=== PATIENT | male | born 1950 | race Caucasian/White ===

== ENCOUNTER 2020-02-24 05:02 | Inpatient (IN) | payer MEDICARE ==
[2020-02-24] VITALS (8 sets, daily range): BP systolic 123–153; BP diastolic 68–82
[~2020-02-24] VITALS: Ht 180.3 cm; Wt 101.3 kg
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
--- NOTE | 2020-02-24 05:50 | NUR ---
Pt states breathing is much better after treatment at this time and no audible wheezing noted.
[2020-02-24 05:55] LABS: BUN 12 mg/dl (7-24); CHLORIDE 106 mmol/L (98-107); CREATININE 0.67 mg/dL (0.70-1.30); POTASSIUM 3.8 mmol/L (3.5-5.1); SODIUM 139 mmol/L (136-145)
--- NOTE | 2020-02-24 06:00 | NUR ---
Spoke with on the phone at this time.
[2020-02-24 06:09] LABS: BASO # 0.1 10*3/uL (0.0-0.1); BASO % 0.7 % (0.0-1.0); EOS # 0.6 10*3/uL (0.0-0.4); EOS % 9.1 % (1.0-4.0); HEMATOCRIT 48.1 % (42.0-52.0); LYMPH # 1.2 10*3/uL (1.3-4.4); LYMPH % 17.2 % (27.0-41.0); MEAN CELL VOLUME 99.8 fl (80.0-94.0); MEAN CORPUSCULAR HGB 32.8 pg (27.0-31.0); MEAN CORPUSCULAR HGB CONC 32.8 g/dl (33.0-37.0); MEAN PLATELET VOLUME 10.3 fl (9.6-12.3); MONO # 0.5 10*3/uL (0.1-1.0); MONO % 6.9 % (3.0-9.0); NEUT # 4.4 10*3/uL (2.3-7.9); NEUT % 64.6 % (47.0-73.0); PLATELET COUNT AUTOMATED 172 10*3/uL (130-400); RED BLOOD COUNT 4.82 10*6/uL (4.50-5.90); RED CELL DISTRI WIDTH 12.8 % (0-14.5); WHITE BLOOD COUNT 6.9 10*3/uL (4.8-10.8)
--- NOTE | 2020-02-24 06:16 | NUR ---
Pt currently sleeping at this time.
--- NOTE | 2020-02-24 06:45 | NUR ---
in to see pt and aware of pt is going to be admitted at this time.
--- NOTE | 2020-02-24 06:55 | NUR ---
Pt voided small amount of yellow urine at this time.
--- NOTE | 2020-02-24 07:03 | NUR ---
Transfer of care to Kushal carrera.
--- NOTE | 2020-02-24 07:05 | NUR ---
NURSE REPORT RECEIVED FOR CONTINUATION OF CARE.
--- NOTE | 2020-02-24 07:35 | NUR ---
A 69, admitted to , under the services of JUAN ANTONIO Tamez DO with a diagnosis of COPD EXACERBATION. Chief complaint is SOB WITH WHEEZE WORSENING. Patient arrived via ambulatory from [place]. Monitor applied. Initial assessment completed. Vital signs taken and recorded. JUAN ANTONIO TAMEZ DO notified of admission to the unit. Orders received. See assessment for past medical history, medications and allergies. Patient and/or family oriented to unit. [facility] visitation policy reviewed. Clothing/patient valuable form completed. ZENON MONROE
[2020-02-24 10:04] LABS: ABG BASE EXCESS 2.6 mmol/L (-2.0-2.0); ARTERIAL BLOOD GAS PH 7.38 (7.35-7.45)
--- NOTE | 2020-02-24 10:41 | NUR ---
ATEMPTED TO CALL FOR HOME MED LIST. NO ANSWER. LEFT MESSAGE REQUESTING CALL BACK.
[2020-02-24] MEDS ORDERED: ATORVASTATIN CA10 M1 PO (10:45)
[2020-02-24] MEDS ORDERED: MELOXICAM15 MG PO (10:45)
[2020-02-24] MEDS ORDERED: NATURE'S BLEND F1 MG PO (10:46)
[2020-02-24] MEDS ORDERED: METHOTREXATE S2.5 M1 PO (10:46)
[2020-02-24] MEDS ORDERED: VENLAFAXINE HY150 M2 PO (10:47)
[2020-02-24] MEDS ORDERED: SILVADENE,SSD C50 GM T (10:47)
--- NOTE | 2020-02-24 10:48 | NUR ---
[facility] UPDATED VIA CLAM HISTORY. NOTIFIED.
[2020-02-24] MEDS ORDERED: VITAMIN D350 MC2 PO (11:35)
[2020-02-24] MEDS ORDERED: BROVANA15 MCG/2 M INH (11:36)
--- NOTE | 2020-02-24 17:03 | NUR ---
CALLED AGAIN ABOUT HOME MEDS NOT BEING RESTARTED. SAID HE WOULD LOOK AT THEM/REORDER THEM NOW.
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
[2020-02-25] VITALS: BP 138/88
--- NOTE | 2020-02-25 01:23 | NUR ---
24 HR chart check completed.
[2020-02-25 06:14] LABS: BASO % 0.1 % (0.0-1.0); EOS % 0.1 % (1.0-4.0); HEMATOCRIT 46.4 % (42.0-52.0); LYMPH # 0.9 10*3/uL (1.3-4.4); LYMPH % 5.4 % (27.0-41.0); MEAN CELL VOLUME 98.7 fl (80.0-94.0); MEAN CORPUSCULAR HGB 33.2 pg (27.0-31.0); MEAN CORPUSCULAR HGB CONC 33.6 g/dl (33.0-37.0); MEAN PLATELET VOLUME 10.2 fl (9.6-12.3); MONO # 0.7 10*3/uL (0.1-1.0); NEUT # 15.6 10*3/uL (2.3-7.9); NEUT % 89.9 % (47.0-73.0); PLATELET COUNT AUTOMATED 199 10*3/uL (130-400); RED CELL DISTRI WIDTH 13.2 % (0-14.5); WHITE BLOOD COUNT 17.3 10*3/uL (4.8-10.8)
[2020-02-25 06:59] LABS: ALBUMIN 3.1 gm/dl (3.1-4.5); ALKALINE PHOSPHATASE 111 U/L (45-117); BUN 14 mg/dl (7-24); CHLORIDE 106 mmol/L (98-107); CHOLESTEROL 144 mg/dL (<200); CREATININE 0.68 mg/dL (0.70-1.30); HDL CHOLESTEROL 55 mg/dl (40-60); LDL CHOLESTEROL 77 mg/dL (9-159); POTASSIUM 4.7 mmol/L (3.5-5.1); SGOT/AST 15 IU/L (3-35); SGPT/ALT 30 U/L (12-78); SODIUM 139 mmol/L (136-145); TOTAL PROTEIN 6.4 gm/dL (6.4-8.2); TRIGLYCERIDES 59 mg/dl (<150); VLDL CHOLESTEROL 12 mg/dL (6-40)
[2020-02-25 07:37] LABS: VITAMIN D, 25-HYDROXY 31.7 ng/mL (30-100)
[2020-02-25 08:00] VITALS: BP 138/65
[2020-02-25 09:02] LABS: ABG BASE EXCESS 3.2 mmol/L (-2.0-2.0); ARTERIAL BLOOD GAS PH 7.414 (7.35-7.45)
[2020-02-25 12:00] VITALS: BP 132/77
--- NOTE | 2020-02-25 12:41 | NUR ---
Test Carrier in to talk to patient. Patient states lives at HOME with . There are 12 steps in the home. Physician: RODERICK Pharmacy: [facility] Home health services: NONE Patient's level of ADLs: INDEPENDENT Patient has working utilities: YES DME: OXYGEN, NEBULIZER AND C PAP. PT DOES NOT REMEMBER SUPPLIERS NAME Follow-up physician's appointment after d/c: WILL BE MADE BY HOSPITALIST NURSE DIRECTOR ON DISCHARGE Does patient want to access PORTAL?: NO Discharge plan PT LIVES AT HOME WITH HIS AND IS INDEPEDENT IN HIS CARE. STATES HE HAS HOME OXYGEN, A NEBULIZER AND A CPAP. DENIES ANY OTHER NEEDS AT THIS TIME. PLANS TO RETURN HOME WITH WHEN MEDICALLY STABLE. WILL CONTINUE TO FOLLOW. STATES HE WILL HAVE A RIDE HOME.. NICOLASA JESUS
[2020-02-25 16:00] VITALS: BP 127/63
[2020-02-25 20:00] VITALS: BP 140/53
--- NOTE | 2020-02-25 22:00 | NUR ---
DRESSINGS TO ARM CHANGED AT THIS TIME. PATIENT TOLERATED WELL.
--- NOTE | 2020-02-25 23:27 | NUR ---
24 HR chart check completed.
[2020-02-26] VITALS: BP 144/78
--- NOTE | 2020-02-26 01:02 | NUR ---
PATIENT SLEEPING, ON HOME CPAP, NO DISTRESS NOTED. CALL LIGHT WITHIN REACH, WILL MONITOR
[2020-02-26 08:00] VITALS: BP 129/81
--- NOTE | 2020-02-26 11:53 | NUR ---
PT WILL DISCHARGE TO HOME WHEN MEDICALLY STABLE. DENIES ANY NEEDS ON DISCHARGE. WILL CONTINUE TO FOLLOW.
[2020-02-26 12:00] VITALS: BP 130/70
[2020-02-26 16:00] VITALS: BP 126/77
[2020-02-26 20:12] VITALS: BP 148/69
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
[2020-02-27] VITALS: BP 140/81
--- NOTE | 2020-02-27 00:08 | NUR ---
24 HR chart check completed.
[2020-02-27 06:29] LABS: BASO % 0.1 % (0.0-1.0); LYMPH # 0.9 10*3/uL (1.3-4.4); LYMPH % 6.7 % (27.0-41.0); MEAN CELL VOLUME 99.2 fl (80.0-94.0); MEAN CORPUSCULAR HGB 33.3 pg (27.0-31.0); MEAN CORPUSCULAR HGB CONC 33.6 g/dl (33.0-37.0); MEAN PLATELET VOLUME 10.2 fl (9.6-12.3); MONO # 0.7 10*3/uL (0.1-1.0); MONO % 4.7 % (3.0-9.0); NEUT # 12.3 10*3/uL (2.3-7.9); NEUT % 87.9 % (47.0-73.0); PLATELET COUNT AUTOMATED 188 10*3/uL (130-400); RED BLOOD COUNT 4.74 10*6/uL (4.50-5.90); RED CELL DISTRI WIDTH 13.3 % (0-14.5)
[2020-02-27 07:35] LABS: ALKALINE PHOSPHATASE 101 U/L (45-117); BUN 17 mg/dl (7-24); CHLORIDE 104 mmol/L (98-107); CREATININE 0.72 mg/dL (0.70-1.30); POTASSIUM 4.5 mmol/L (3.5-5.1); SGOT/AST 21 IU/L (3-35); SGPT/ALT 39 U/L (12-78); SODIUM 135 mmol/L (136-145); TOTAL PROTEIN 6.5 gm/dL (6.4-8.2)
[2020-02-27 08:00] VITALS: BP 134/75
--- NOTE | 2020-02-27 08:00 | NUR ---
Neurological: awake,alert,oriented Respiratory: cough Breath sounds: diminished Cough: hacking Cardiovascular: no problem Gastrointestinal: soft Genito/Urinary: no problem Musculoskeketal: AMBULATORY ANGIE CRUZ
--- NOTE | 2020-02-27 11:11 | NUR ---
PT BEING ACCESSED FOR HOME O2 PRIOR TO DC. PT HAS O2 AT HOME BUT FOR HS WITH CPAP. WILL CONTINUE TO FOLLOW.
--- NOTE | 2020-02-27 11:14 | NUR ---
PT CONTINUES TO DENY NEEDS AT HOME. WILL CONTINUE TO FOLLOW.
[2020-02-27 12:00] VITALS: BP 129/80
--- NOTE | 2020-02-27 12:05 | NUR ---
HOME O2 ASSESSMENT: PRE BP: 133/80, HR 104, RR 18, PULSE OX 90% ON ROOM AIR AT REST. AMBULATED PATIENT APPROX 10', PULSE OX DECREASED TO 86% ON ROOM AIR WHILE AMBULATING. PLACED 2 L/ ON PATIENT, SAT >87% WHILE AMBULATING-INCREASED TO 3 L/M-SAT >89% WHILE AMBULATING- INCREASED TO 4 L/M-SAT >92% WHILE AMBULATING. POST BP: 131/75, HR 78, RR 20 RN NOTIFIED. WILL NOTIFY CASE MANAGEMENT.
[2020-02-27 16:00] VITALS: BP 157/85
[2020-02-27 20:00] VITALS: BP 152/72
--- NOTE | 2020-02-27 22:00 | NUR ---
DRESSING CHANGED TO RIGHT ARM PER ORDER. PT. TOLERATED WELL.
[2020-02-28] VITALS: BP 126/76
--- NOTE | 2020-02-28 02:59 | NUR ---
SLEEPING NO ACUTE DISTRESS NOTED.
--- NOTE | 2020-02-28 05:11 | NUR ---
24 HR chart check completed.
[2020-02-28 08:00] VITALS: BP 142/84
--- NOTE | 2020-02-28 08:01 | NUR ---
PT RESTING IN BED/ NO DISTRESS NOTED. WILL MONITOR
[2020-02-28 12:00] VITALS: BP 140/80
--- NOTE | 2020-02-28 12:02 | NUR ---
ASSESS FOR HOME OXYGEN ROOM AIR ATREST SPO2 87% HR 100 NC 2L AT REST SPO2 95% HR 98 NC 2L WITH AMBULATION SPO2 90-92% HR 112 NC 2L RECOVERY SPO2 94% HR 96 PT. REQUIRES 2L OXYGEN AT REST AND DURING AMBULATION TO KEEP SPO2 >=88%.
--- NOTE | 2020-02-28 12:24 | NUR ---
PT FOR POSSIBLE DC TODAY AFTER ACCESSED FOR HOME O2. WILL CONTINUE TO FOLLOW.
[2020-02-28] MEDS ORDERED: PREDNISONE10 MG PO ×2 (13:55→17:02)
--- NOTE | 2020-02-28 14:42 | NUR ---
REFERRAL AND SCRIP FOR HOME OXYGEN SENT TO [facility] FOR REVIEW
--- NOTE | 2020-02-28 15:49 | NUR ---
[facility] CALLED AND THEY ARE WORKING ON OXYGEN AND WILL BRING PORTABLE TANK FOR DISCHARGE.
[2020-02-28 16:00] VITALS: BP 149/81
--- NOTE | 2020-02-28 18:15 | NUR ---
Discharge instructions reviewed with patient/family. Patient receptive and verbalizes understanding. Follow-up care arranged. Written instructions given to patient/family. [facility] O2 WAS DELIVERED BY [facility]
== END 2020-02-28 18:15 | disposition home or self-care (01) | DRG 177 ==
LOC: ED 05:02 → 5E 06:29 → EDHOLD 06:29 → 5E 08:06
PROVIDERS: Internal Medicine; Internal Medicine Critical Care Medicine; Registered Nurse; ADMIT Student in an Organized Health Care Education/Training Program; ATTEND Student in an Organized Health Care Education/Training Program
PROC: 5A09357 Assistance with Respiratory Ventilation, Less than 24 Consecutive Hours, Continuous Positive Airway Pressure (ICD-10-PCS; principal; 2020-02-26)
PROC: 5A09357 Assistance with Respiratory Ventilation, Less than 24 Consecutive Hours, Continuous Positive Airway Pressure (ICD-10-PCS; 2020-02-28)
DX: J15.6 Pneumonia due to other Gram-negative bacteria (principal); J96.01 Acute respiratory failure with hypoxia; J96.02 Acute respiratory failure with hypercapnia; J44.1 Chronic obstructive pulmonary disease with (acute) exacerbation; E44.0 Moderate protein-calorie malnutrition; J44.0 Chronic obstructive pulmonary disease with (acute) lower respiratory infection; F17.210 Nicotine dependence, cigarettes, uncomplicated; J45.909 Unspecified asthma, uncomplicated; E78.5 Hyperlipidemia, unspecified; G47.33 Obstructive sleep apnea (adult) (pediatric); M06.9 Rheumatoid arthritis, unspecified; Z96.651 Presence of right artificial knee joint; D72.829 Elevated white blood cell count, unspecified; R03.0 Elevated blood-pressure reading, without diagnosis of hypertension; R73.9 Hyperglycemia, unspecified; T22.121A Burn of first degree of right elbow, initial encounter; E66.8 Other obesity; J20.9 Acute bronchitis, unspecified; J98.6 Disorders of diaphragm; Z71.6 Tobacco abuse counseling; Z99.81 Dependence on supplemental oxygen; Z68.31 Body mass index [BMI] 31.0-31.9, adult; X08.8XXA Exposure to other specified smoke, fire and flames, initial encounter; Y93.89 Activity, other specified; Y92.89 Other specified places as the place of occurrence of the external cause; Y99.8 Other external cause status

== ENCOUNTER 2020-08-06 11:43 | Inpatient (IN) | payer MEDICARE ==
[~2020-08-06] VITALS: Ht 180.3 cm; Wt 100.2 kg
[~2020-08-06 11:43] MED LIST: ATORVASTATIN CA10 M1 PO; BROVANA15 MCG/2 M INH; MELOXICAM15 MG PO; METHOTREXATE S2.5 M1 PO; NATURE'S BLEND F1 MG PO; PREDNISONE10 MG PO; SILVADENE,SSD C50 GM T; VENLAFAXINE HY150 M2 PO; VITAMIN D350 MC2 PO
[2020-08-06 11:49] VITALS: BP 123/70
[2020-08-06 13:14] LABS: BASO % 0.6 % (0.0-1.0); EOS # 0.8 10*3/uL (0.0-0.4); EOS % 12.1 % (1.0-4.0); HEMATOCRIT 49.3 % (42.0-52.0); LYMPH # 1.1 10*3/uL (1.3-4.4); LYMPH % 16.5 % (27.0-41.0); MEAN CELL VOLUME 100.4 fl (80.0-94.0); MEAN CORPUSCULAR HGB 33.2 pg (27.0-31.0); MEAN CORPUSCULAR HGB CONC 33.1 g/dl (33.0-37.0); MEAN PLATELET VOLUME 10.6 fl (9.6-12.3); MONO # 0.4 10*3/uL (0.1-1.0); MONO % 5.8 % (3.0-9.0); NEUT # 4.1 10*3/uL (2.3-7.9); NEUT % 64.8 % (47.0-73.0); PLATELET COUNT AUTOMATED 147 10*3/uL (130-400); RED BLOOD COUNT 4.91 10*6/uL (4.50-5.90); RED CELL DISTRI WIDTH 12.7 % (0-14.5); WHITE BLOOD COUNT 6.4 10*3/uL (4.8-10.8)
[2020-08-06 13:26] LABS: ACT PARTIAL THROMBO TIME 30.5 SECONDS (20.0-32.1)
[2020-08-06 13:32] LABS: ALBUMIN 3.3 gm/dl (3.1-4.5); ALKALINE PHOSPHATASE 118 U/L (45-117); BUN 13 mg/dl (7-24); CHLORIDE 107 mmol/L (98-107); CREATININE 0.77 mg/dL (0.70-1.30); LIPASE 377 U/L (73-393); POTASSIUM 4.1 mmol/L (3.5-5.1); SGOT/AST 16 IU/L (3-35); SGPT/ALT 28 U/L (12-78); SODIUM 140 mmol/L (136-145); TOTAL PROTEIN 6.4 gm/dL (6.4-8.2)
[2020-08-06 13:39] LABS: TROPONIN I < 0.015 ng/ml (<0.045)
[2020-08-06 13:56] LABS: BILIRUBIN Negative (Negative); BLOOD Negative (Negative); CLARITY Clear (Clear); COLOR Yellow (Yellow); GLUCOSE Negative (Negative); KETONE Negative (Negative); LEUKO ESTERASE Negative (Negative); NITRITE Negative (Negative); SPECIFIC GRAVITY 1.025 (1.001-1.030)
[2020-08-06 14:15] LABS: BACTERIA TRACE; EPITHELIAL CELLS 0-2; MUCOUS TRACE; RBC 0-2 rbc/hpf (0-2); WBC 0-2 wbc/hpf (0-5)
[2020-08-06 16:50] VITALS: BP 142/88
[2020-08-06 20:00] VITALS: BP 124/67
[2020-08-06 23:39] VITALS: BP 146/86
[2020-08-07 06:19] LABS: HEMATOCRIT 51.9 % (42.0-52.0); MEAN CELL VOLUME 99.4 fl (80.0-94.0); MEAN CORPUSCULAR HGB 33.1 pg (27.0-31.0); MEAN CORPUSCULAR HGB CONC 33.3 g/dl (33.0-37.0); PLATELET COUNT AUTOMATED 174 10*3/uL (130-400); RED BLOOD COUNT 5.22 10*6/uL (4.50-5.90); RED CELL DISTRI WIDTH 12.5 % (0-14.5); WHITE BLOOD COUNT 13.1 10*3/uL (4.8-10.8)
[2020-08-07 06:33] LABS: BUN 16 mg/dl (7-24); CHLORIDE 104 mmol/L (98-107); CREATININE 0.87 mg/dL (0.70-1.30); POTASSIUM 4.5 mmol/L (3.5-5.1); SODIUM 137 mmol/L (136-145)
[2020-08-07 06:41] LABS: BURR CELLS FEW; PLATELET SUFFICIENCY NORMAL (NORMAL); TOTAL CELLS COUNTED 100 #CELLS
[2020-08-07 06:44] LABS: FREE T4 0.83 ng/dl (0.76-1.46); THYROID STIM HORMONE (HS) 0.511 uIU/ml (0.358-4.75)
[2020-08-07 08:00] VITALS: BP 143/86
[2020-08-07 12:00] VITALS: BP 115/61
[2020-08-07 16:00] VITALS: BP 115/57
[2020-08-07 20:00] VITALS: BP 124/67
[2020-08-08] VITALS: BP 155/83
[2020-08-08 08:00] VITALS: BP 121/63
[2020-08-08] MEDS ORDERED: GLUCOPHAGE500 M1 PO (09:54)
[2020-08-08] MEDS ORDERED: MUCUS RELIEF600 MG PO (09:54)
[2020-08-08] MEDS ORDERED: PREDNISONE10 MG PO (09:54)
[2020-08-08] MEDS ORDERED: DOXYCYCLINE100 MG PO (09:54)
[2020-08-08 12:00] VITALS: BP 137/72
== END 2020-08-08 14:07 | disposition home or self-care (01) | DRG 871 ==
LOC: ED 11:43 → EDHOLD 15:47 → 5E 15:47 → EDHOLD 16:10 → 5E 16:32
PROVIDERS: Internal Medicine; Physician Assistant; ADMIT Internal Medicine; ATTEND Internal Medicine
PROC: 5A09357 Assistance with Respiratory Ventilation, Less than 24 Consecutive Hours, Continuous Positive Airway Pressure (ICD-10-PCS; principal; 2020-08-06)
PROC: 5A09357 Assistance with Respiratory Ventilation, Less than 24 Consecutive Hours, Continuous Positive Airway Pressure (ICD-10-PCS; 2020-08-07)
PROC: 5A09357 Assistance with Respiratory Ventilation, Less than 24 Consecutive Hours, Continuous Positive Airway Pressure (ICD-10-PCS; 2020-08-08)
DX: A41.9 Sepsis, unspecified organism (principal); J18.9 Pneumonia, unspecified organism; J96.01 Acute respiratory failure with hypoxia; J44.1 Chronic obstructive pulmonary disease with (acute) exacerbation; E44.0 Moderate protein-calorie malnutrition; J44.0 Chronic obstructive pulmonary disease with (acute) lower respiratory infection; F17.200 Nicotine dependence, unspecified, uncomplicated; E78.5 Hyperlipidemia, unspecified; E66.9 Obesity, unspecified; D75.89 Other specified diseases of blood and blood-forming organs; R00.0 Tachycardia, unspecified; E11.65 Type 2 diabetes mellitus with hyperglycemia; G47.33 Obstructive sleep apnea (adult) (pediatric); Z96.651 Presence of right artificial knee joint; Z82.49 Family history of ischemic heart disease and other diseases of the circulatory system; Z71.6 Tobacco abuse counseling; Z83.3 Family history of diabetes mellitus; Z79.899 Other long term (current) drug therapy; Z99.81 Dependence on supplemental oxygen; Z68.30 Body mass index [BMI] 30.0-30.9, adult

== ENCOUNTER 2020-10-08 21:29 | Inpatient (IN) | payer MEDICARE ==
[~2020-10-08] VITALS: Ht 180.3 cm; Wt 98.9 kg
[~2020-10-08 21:29] MED LIST changes: +DOXYCYCLINE100 MG PO; +GLUCOPHAGE500 M1 PO; +MUCUS RELIEF600 MG PO
[2020-10-08 21:30] VITALS: BP 131/72
[2020-10-08 22:15] VITALS: BP 128/71
[2020-10-08 23:22] LABS: HEMATOCRIT 40.9 % (42.0-52.0); MEAN CELL VOLUME 94.7 fl (80.0-94.0); MEAN CORPUSCULAR HGB 33.1 pg (27.0-31.0); MEAN PLATELET VOLUME 10.6 fl (9.6-12.3); PLATELET COUNT AUTOMATED 147 10*3/uL (130-400); RED BLOOD COUNT 4.32 10*6/uL (4.50-5.90); RED CELL DISTRI WIDTH 13.8 % (0-14.5); WHITE BLOOD COUNT 3.6 10*3/uL (4.8-10.8)
[2020-10-08 23:35] LABS: ALBUMIN 2.7 gm/dl (3.1-4.5); ALKALINE PHOSPHATASE 82 U/L (45-117); BUN 20 mg/dl (7-24); CHLORIDE 96 mmol/L (98-107); CREATININE 0.74 mg/dL (0.70-1.30); POTASSIUM 4.2 mmol/L (3.5-5.1); SGOT/AST 117 IU/L (3-35); SGPT/ALT 73 U/L (12-78); SODIUM 132 mmol/L (136-145); TOTAL PROTEIN 6.6 gm/dL (6.4-8.2)
[2020-10-08 23:45] VITALS: BP 118/72
[2020-10-08 23:50] LABS: ATYPICAL LYMPHS 2 % (0-0); PLATELET SUFFICIENCY LOW (NORMAL); TOTAL CELLS COUNTED 100 #CELLS
[2020-10-09] VITALS (8 sets, daily range): BP systolic 112–153; BP diastolic 68–81
[2020-10-09] MEDS ORDERED: SINGULAIR10 M1 PO (04:34)
[2020-10-09 05:19] LABS: ALBUMIN 2.9 gm/dl (3.1-4.5); ALKALINE PHOSPHATASE 80 U/L (45-117); BUN 25 mg/dl (7-24); CHLORIDE 97 mmol/L (98-107); CREATININE 0.87 mg/dL (0.70-1.30); POTASSIUM 4.2 mmol/L (3.5-5.1); SGOT/AST 139 IU/L (3-35); SGPT/ALT 90 U/L (12-78); SODIUM 131 mmol/L (136-145); TOTAL PROTEIN 6.7 gm/dL (6.4-8.2)
[2020-10-09 06:35] LABS: HEMATOCRIT 40.1 % (42.0-52.0); MEAN CORPUSCULAR HGB 35.8 pg (27.0-31.0); MEAN CORPUSCULAR HGB CONC 36.2 g/dl (33.0-37.0); MEAN PLATELET VOLUME 11.2 fl (9.6-12.3); PLATELET COUNT AUTOMATED 156 10*3/uL (130-400); RED BLOOD COUNT 4.05 10*6/uL (4.50-5.90); RED CELL DISTRI WIDTH 14.1 % (0-14.5); WHITE BLOOD COUNT 3.2 10*3/uL (4.8-10.8)
[2020-10-09 06:54] LABS: ATYPICAL LYMPHS 1 % (0-0); BASOPHILS 1 % (0-1); TOTAL CELLS COUNTED 100 #CELLS
[2020-10-09 06:55] LABS: PLATELET SUFFICIENCY NORMAL (NORMAL)
[2020-10-10] VITALS: BP 110/53
[2020-10-10 08:00] VITALS: BP 107/81
[2020-10-10 12:00] VITALS: BP 104/67
[2020-10-10 16:00] VITALS: BP 142/72
[2020-10-10 20:00] VITALS: BP 132/70
[2020-10-11] VITALS: BP 107/50
[2020-10-11 06:23] LABS: HEMATOCRIT 38.5 % (42.0-52.0); LYMPH # 0.6 10*3/uL (1.3-4.4); LYMPH % 8.6 % (27.0-41.0); MEAN CELL VOLUME 99.7 fl (80.0-94.0); MEAN CORPUSCULAR HGB 34.2 pg (27.0-31.0); MEAN CORPUSCULAR HGB CONC 34.3 g/dl (33.0-37.0); MEAN PLATELET VOLUME 10.5 fl (9.6-12.3); MONO # 0.4 10*3/uL (0.1-1.0); MONO % 5.6 % (3.0-9.0); NEUT # 5.4 10*3/uL (2.3-7.9); NEUT % 85.3 % (47.0-73.0); PLATELET COUNT AUTOMATED 220 10*3/uL (130-400); RED BLOOD COUNT 3.86 10*6/uL (4.50-5.90); RED CELL DISTRI WIDTH 13.9 % (0-14.5); WHITE BLOOD COUNT 6.4 10*3/uL (4.8-10.8)
[2020-10-11 06:54] LABS: ALBUMIN 2.5 gm/dl (3.1-4.5); ALKALINE PHOSPHATASE 80 U/L (45-117); BUN 23 mg/dl (7-24); CHLORIDE 104 mmol/L (98-107); CREATININE 0.64 mg/dL (0.70-1.30); POTASSIUM 4.5 mmol/L (3.5-5.1); SGOT/AST 116 IU/L (3-35); SGPT/ALT 117 U/L (12-78); SODIUM 139 mmol/L (136-145); TOTAL PROTEIN 6.1 gm/dL (6.4-8.2)
[2020-10-11 08:00] VITALS: BP 144/71
[2020-10-11 12:00] VITALS: BP 136/73
[2020-10-11 16:00] VITALS: BP 135/75
[2020-10-11 20:00] VITALS: BP 123/71
[2020-10-12 08:00] VITALS: BP 134/85
[2020-10-12 12:00] VITALS: BP 129/79
[2020-10-12 16:00] VITALS: BP 138/81
[2020-10-12 20:00] VITALS: BP 146/71
[2020-10-13] VITALS: BP 125/74
[2020-10-13 08:00] VITALS: BP 138/61
[2020-10-13 12:00] VITALS: BP 138/66
[2020-10-13 16:00] VITALS: BP 131/81
[2020-10-13 20:00] VITALS: BP 132/76
[2020-10-14] VITALS: BP 142/59
[2020-10-14 06:35] LABS: BASO % 0.2 % (0.0-1.0); EOS % 0.5 % (1.0-4.0); HEMATOCRIT 41.2 % (42.0-52.0); LYMPH # 0.6 10*3/uL (1.3-4.4); LYMPH % 8.6 % (27.0-41.0); MEAN CELL VOLUME 97.9 fl (80.0-94.0); MEAN CORPUSCULAR HGB 33.3 pg (27.0-31.0); MEAN PLATELET VOLUME 10.7 fl (9.6-12.3); MONO # 0.3 10*3/uL (0.1-1.0); MONO % 5.2 % (3.0-9.0); NEUT # 5.4 10*3/uL (2.3-7.9); NEUT % 84.9 % (47.0-73.0); PLATELET COUNT AUTOMATED 221 10*3/uL (130-400); RED BLOOD COUNT 4.21 10*6/uL (4.50-5.90); RED CELL DISTRI WIDTH 13.5 % (0-14.5); WHITE BLOOD COUNT 6.4 10*3/uL (4.8-10.8)
[2020-10-14 06:48] LABS: CREATININE 0.59 mg/dL (0.70-1.30)
[2020-10-14 08:00] VITALS: BP 121/69
[2020-10-14 12:00] VITALS: BP 132/71
[2020-10-14] MEDS ORDERED: DECADRON6 M1 PO (12:39)
== END 2020-10-14 14:55 | disposition home or self-care (01) | DRG 871 ==
LOC: ED 21:29 → 4E 10-09 02:58 → EDHOLD 10-09 02:58 → 4E 10-09 03:12
PROVIDERS: Emergency Medicine; Internal Medicine; ADMIT Internal Medicine; ATTEND Internal Medicine
DX: A41.9 Sepsis, unspecified organism (principal); U07.1 COVID-19; J12.82 Pneumonia due to coronavirus disease 2019; E43 Unspecified severe protein-calorie malnutrition; J96.21 Acute and chronic respiratory failure with hypoxia; E87.1 Hypo-osmolality and hyponatremia; J44.0 Chronic obstructive pulmonary disease with (acute) lower respiratory infection; G47.33 Obstructive sleep apnea (adult) (pediatric); R65.20 Severe sepsis without septic shock; R00.1 Bradycardia, unspecified; D72.819 Decreased white blood cell count, unspecified; E78.5 Hyperlipidemia, unspecified; E66.9 Obesity, unspecified; Z96.651 Presence of right artificial knee joint; E11.65 Type 2 diabetes mellitus with hyperglycemia; Z68.30 Body mass index [BMI] 30.0-30.9, adult; Z83.3 Family history of diabetes mellitus; Z82.49 Family history of ischemic heart disease and other diseases of the circulatory system; Z79.899 Other long term (current) drug therapy; Z91.19 Patient's noncompliance with other medical treatment and regimen